=== PATIENT | female | born 1965 | race Caucasian/White ===

== ENCOUNTER → 2016-10-21 | Outpatient (CLI) | payer OTHER ==
--- NOTE | 2016-10-21 10:38 | RAD ---
DATE: 10/21/2016 EXAM: DIGITAL DIAGNOSTIC BILATERAL, BREAST BILATERAL HISTORY: Generalized bilateral breast lumpiness COMPARISON: 2014 This study was interpreted with the benefit of Computerized Aided Detection (CAD). FINDINGS: The breasts are heterogeneously dense. No new or enlarging breast densities are seen. A benign type calcification is present on the left. No suspicious microcalcifications have developed. Benign-appearing lymph node type densities are present in both axillary regions. Bilateral breast ultrasound, 10/21/2016: Both breasts were carefully scanned. There are heterogeneous fibroglandular shadows throughout both breasts. At the 3:30 location in the left breast approximately 7 cm from the nipple there is a small smooth hypoechoic nodule. It is wider than tall. It 1 x 5 x 9 mm. This is probably a complicated cyst or small fibroadenoma. No other abnormality is seen. IMPRESSION: 1. Heterogeneously dense breasts. Clinical surveillance and follow-up mammography in one year is suggested. 2. Small benign-appearing left breast nodule as described above. Follow-up left breast ultrasound in 6 months is suggested to establish stability of this nodule. BI-RADS CATEGORY: 3 PROBABLY BENIGN FINDING(S)-SHORT INTERVAL FOLLOW-UP SUGGESTED RECOMMENDED FOLLOW-UP: 6M 6 MONTH FOLLOW-UP PQRS compliance statement: Patient information was entered into a reminder system with a target due date for the next mammogram. Mammography is a sensitive method for finding small breast cancers, but it does not detect them all and is not a substitute for careful clinical examination. A negative mammogram does not negate a clinically suspicious finding and should not result in delay in biopsying a clinically suspicious abnormality. "Our facility is accredited by the [employer] Mammography [employer]."
== END | disposition home or self-care (01) ==
LOC: MAMMO 09:30
PROVIDERS: ATTEND Family Medicine
DX: R92.8 Other abnormal and inconclusive findings on diagnostic imaging of breast (principal)
CPT/HCPCS: 76641; G0204; 77066

== ENCOUNTER → 2017-04-24 | Outpatient (CLI) | payer OTHER ==
--- NOTE | 2017-04-24 12:21 | RAD ---
Left breast ultrasound, 04/24/2017: History: Follow-up breast nodule A targeted ultrasound exam of the left breast was performed at the 3:30 location, approximately 7 cm from the nipple, where a nodule was delineated on the 10/21/2016 study. Again noted is an oval-shaped smooth hypoechoic nodule measuring 5 x 9 x 10 mm. It is unchanged in size and configuration. There is no significant posterior acoustic enhancement or shadowing. No internal color flow is seen. This may be a complicated cyst or fibroadenoma. No other abnormality is seen in this region. IMPRESSION: Stable benign-appearing left breast nodule as described above. Further sonographic follow-up in 6 months at the time of the patient's yearly mammography is suggested. BI-RADS 3-probably benign findings
== END | disposition home or self-care (01) ==
LOC: US 11:07
PROVIDERS: ATTEND Family Medicine
DX: N63.20 Unspecified lump in the left breast, unspecified quadrant (principal)
CPT/HCPCS: 76641

== ENCOUNTER → 2017-11-20 | Outpatient (CLI) | payer OTHER | END | disposition home or self-care (01) | LOC: MAMMO 09:38 | DX: R92.8 Other abnormal and inconclusive findings on diagnostic imaging of breast (principal) | CPT/HCPCS: 76641; 77066 ==

== ENCOUNTER → 2018-06-21 | Outpatient (CLI) | payer OTHER ==
--- NOTE | 2018-06-26 11:19 | RAD ---
INDICATION: 52 years year-old female presents for short interval follow-up of a prior sonographic abnormality. TECHNIQUE: Targeted high resolution sonography of the region of clinical concern was performed. COMPARISON: Prior ultrasound 11/20/2017. Additional prior mammographic and ultrasound imaging dating back to 06/13/2013 ULTRASOUND FINDINGS: Targeted ultrasound of the previously described probably benign finding was again performed. 3:30 position, 7 cm from the nipple: A 0.8 x 0.5 x 0.9 cm hypoechoic gently lobulated lesion is seen and a parallel orientation, similar to prior examination. This previously measured 0.8 x 0.4 x 0.7 cm. IMPRESSION: Probably benign finding. RECOMMENDATION: Recommend 6 month ultrasound follow up. BI-RADS 3: Probably Benign
== END | disposition home or self-care (01) ==
LOC: US 12:03
PROVIDERS: ATTEND Family Medicine
DX: R92.8 Other abnormal and inconclusive findings on diagnostic imaging of breast (principal)
CPT/HCPCS: 76641

== ENCOUNTER → 2020-02-22 | Outpatient (CLI) | payer OTHER ==
--- NOTE | 2020-02-23 09:45 | RAD ---
DATE: 02/22/2020 12:35 PM EXAM: DIGITAL DIAGNOSTIC BILATERAL, BREAST LEFT HISTORY: 54-year-old woman due for mammogram screening, presents for six-month follow-up probably benign left breast nodule COMPARISON: Mammograms of 11/20/2017 and 06/21/2018, 10/21/2016, and 01/29/2015 as well as left breast ultrasound examinations of 10/21/2016, 04/24/2017, 11/20/2017 and 06/21/2018. TECHNIQUE: Bilateral CC and MLO views of the breasts were performed. Bilateral breast tomosynthesis was performed in CC and MLO projections. A left X CCL view was also obtained. This study was interpreted with the benefit of Computerized Aided Detection (CAD). Targeted ultrasound of the left breast was also performed. FINDINGS: Breast Density: HETERO The breast parenchyma Is heterogeneously dense, which could reduce sensitivity of mammography. Breast parenchyma level C No suspicious masses, microcalcifications or architectural distortion is present to suggest malignancy in either breast. The visualized axillae are unremarkable. Targeted ultrasound of the left breast at the 3:30 o'clock position 7 cm from the nipple where a parallel orientation oval mass has been followed for the past 3 years was performed and revealed a circumscribed parallel orientation 9 x 5 x 8 mm mass in the posterior left breast with no internal blood flow, essentially unchanged in size or shape since at least October 2016. Sonographic stability supports a benign etiology. IMPRESSION: Benign findings on bilateral diagnostic mammogram and targeted left breast ultrasound. BI-RADS CATEGORY: 2 BENIGN FINDING(S) RECOMMENDED FOLLOW-UP: 12M 12 MONTH FOLLOW-UP Annual screening mammography is recommended, unless clinically indicated sooner based on symptoms or change in physical exam. PQRS compliance statement: Patient information was entered into a reminder system with a target due date for the next mammogram. Mammography is a sensitive method for finding small breast cancers, but it does not detect them all and is not a substitute for careful clinical examination. A negative mammogram does not negate a clinically suspicious finding and should not result in delay in biopsying a clinically suspicious abnormality. "Our facility is accredited by the [employer] Mammography [employer]."
== END | disposition home or self-care (01) ==
LOC: MAMMO 12:05
PROVIDERS: ATTEND Family Medicine
DX: R92.2 Inconclusive mammogram (principal); N63.23 Unspecified lump in the left breast, lower outer quadrant
CPT/HCPCS: 76641; 77066